=== PATIENT | female | born 1985 | race Native Hawaiian/Other Pacific Islander ===

== ENCOUNTER 2020-03-15 17:01 | Emergency (ER) | payer OTHER ==
[~2020-03-15] VITALS: Ht 162.6 cm; Wt 61.7 kg
[2020-03-15 18:27] LABS: PLATELET COUNT 259 K/uL (152-353)
[2020-03-15 18:47] LABS: POTASSIUM 4.1 mmol/L (3.6-5.2)
[2020-03-15 20:21] VITALS: BP 120/69; TEMP 98.1
== END 2020-03-15 20:21 | disposition home or self-care (01) ==
LOC: ED 17:06
PROVIDERS: Family Medicine
DX: R10.84 Generalized abdominal pain (principal); K83.1 Obstruction of bile duct
CPT/HCPCS: 36415; 80053; 81000; 82150; 83690; 85027; 96372; 99283; J1885